=== PATIENT | female | born 1980 | race African-American/Black ===

== ENCOUNTER 2019-11-27 05:48 | Emergency (ER) | payer SELFPAY ==
[~2019-11-27] VITALS: Ht 170.2 cm; Wt 91.0 kg
[2019-11-27] MEDS ORDERED: METF-414 MT (06:04)
[2019-11-27] MEDS ORDERED: METF-414 PO (06:04)
[2019-11-27] MEDS ORDERED: ACETAMINOPHEN 325MG TABLET PO STA (06:44)
[2019-11-27] MEDS ORDERED: SODIUM CHLORIDE 0.9% 1,000 ML IV ONE ×2 (06:45)
[2019-11-27 07:18] LABS: HEMATOCRIT. 43.4 % (36.0-48.0); HEMOGLOBIN. 14.4 g/dL (12.0-16.0); MEAN CORPUSCULAR HEMOGLOBIN 27.2 pg (28.0-32.0); PLATELET 243 x1000/uL (130-400); RED BLOOD CELL COUNT 5.29 mill/uL (4.2-5.4); RED CELL DISTRIBUTION WIDTH 14.1 % (11.6-14.6)
[2019-11-27 07:24] LABS: CHLORIDE 106 mEq/L (98-107)
[2019-11-27 07:54] LABS: CLARITY URINE CLEAR (CLEAR); COLOR URINE YELLOW (YELLOW); KETONES URINE NEGATIVE (NEGATIVE); LEUKOCYTE ESTERASE URINE NEGATIVE (NEGATIVE); NITRITE URINE NEGATIVE (NEGATIVE); OCCULT BLOOD URINE NEGATIVE (NEGATIVE); PROTEIN URINE NEGATIVE (NEGATIVE); SPECIFIC GRAVITY URINE 1.007 (1.005-1.030); UROBILINOGEN URINE 0.2 E.U./dL (0.2-1.0)
[2019-11-27 08:21] LABS: PLATELET ESTIMATE NORMAL
[2019-11-27 09:10] VITALS: BP 141/88
== END 2019-11-27 09:21 | disposition home or self-care (01) ==
LOC: ER 05:48
DX: B34.9 Viral infection, unspecified (principal); E11.9 Type 2 diabetes mellitus without complications; Z79.84 Long term (current) use of oral hypoglycemic drugs; Z90.49 Acquired absence of other specified parts of digestive tract
CPT/HCPCS: 36415; 71045; 80053; 81003; 81025; 85025; 85610; 87040; 87804; 99284; J7030

== ENCOUNTER 2019-11-28 10:03 | Inpatient (IN) | payer SELFPAY ==
[~2019-11-28] VITALS: Ht 170.2 cm; Wt 107.0 kg
[~2019-11-28 10:03] MED LIST: METF-414 MT; METF-414 PO
[2019-11-28] MEDS ORDERED: SODIUM CHLORIDE 0.9% 1,000 ML IV ONE (10:07)
[2019-11-28] MEDS ORDERED: PIPERACILLIN/TAZ 3.375G PREMIX 50 ML IV ONE (10:15)
[2019-11-28] MEDS ORDERED: AZITHROMYCIN 500 MG in DEXT 5% WATER 250 ML IV ONE (10:15)
[2019-11-28 11:54] LABS: BASOPHILS % 1.3 % (0.0-2.0); HEMATOCRIT. 44.2 % (36.0-48.0); HEMOGLOBIN. 14.7 g/dL (12.0-16.0); LYMPHOCYTES % 35.2 % (20.0-50.0); MEAN CORPUSCULAR HEMOGLOBIN 27.6 pg (28.0-32.0); MEAN CORPUSCULAR VOLUME 83.1 fL (81.0-99.0); MEAN PLATELET VOLUME 9.2 fl (7.4-10.4); MONOCYTES % 10.5 % (2.0-8.0); PLATELET 235 x1000/uL (130-400); RED BLOOD CELL COUNT 5.32 mill/uL (4.2-5.4); RED CELL DISTRIBUTION WIDTH 14.1 % (11.6-14.6)
[2019-11-28 12:00] LABS: CHLORIDE 108 mEq/L (98-107)
[2019-11-28] MEDS ORDERED: DOCUSATE SODIUM 100MG CAPSULE PO PRN (13:00)
[2019-11-28] MEDS ORDERED: ONDANSETRON HCL 4MG/2ML INJ IV PRN (13:00)
[2019-11-28] MEDS ORDERED: GUAIFENESIN 200MG/10ML SUGAR FREE UDC PO PRN (13:00)
[2019-11-28] MEDS ORDERED: MAGNESIUM/ALUMINUM HYDROXIDE/SIMETHICONE 30ML UDC PO PRN (13:00)
[2019-11-28] MEDS ORDERED: CLONIDINE 0.1MG TABLET PO PRN (13:00)
[2019-11-28] MEDS: AMLODIPINE 10MG TABLET PO SCH (18:30)
[2019-11-28 20:00] VITALS: BP_SYST 99; BP_DIAS 78; BP_DIAS 86
[2019-11-28] MEDS: PIPERACILLIN/TAZOBACTAM 3.375 G in DEXT 5% WATER 100 ML IV SCH (22:18)
[2019-11-29] VITALS: BP 140/86
[2019-11-29 04:00] VITALS: BP 136/86
[2019-11-29] MEDS: PIPERACILLIN/TAZOBACTAM 3.375 G in DEXT 5% WATER 100 ML IV SCH ×4 (04:53→23:59)
[2019-11-29] MEDS: AZITHROMYCIN 250 MG in DEXT 5% WATER 250 ML IV SCH ×2 (09:00→10:21)
[2019-11-29] MEDS: AMLODIPINE 10MG TABLET PO SCH (10:23)
[2019-11-29 11:48] LABS: BASOPHILS % 0.6 % (0.0-2.0); HEMATOCRIT. 42.5 % (36.0-48.0); HEMOGLOBIN. 14.1 g/dL (12.0-16.0); LYMPHOCYTES % 32.8 % (20.0-50.0); MEAN CORPUSCULAR HEMOGLOBIN 27.3 pg (28.0-32.0); MEAN CORPUSCULAR VOLUME 82.5 fL (81.0-99.0); MEAN PLATELET VOLUME 8.8 fl (7.4-10.4); MONOCYTES % 9.6 % (2.0-8.0); PLATELET 236 x1000/uL (130-400); RED BLOOD CELL COUNT 5.15 mill/uL (4.2-5.4); RED CELL DISTRIBUTION WIDTH 14.2 % (11.6-14.6)
[2019-11-29 12:00] VITALS: BP 150/81
[2019-11-29 12:19] LABS: CHLORIDE 105 mEq/L (98-107)
[2019-11-29] MEDS ORDERED: DEXTROSE 50% WATER 50ML SYRINGE IV PRN (13:45)
[2019-11-29] MEDS: AZITHROMYCIN 500 MG TABLET PO SCH (15:00)
[2019-11-29 16:00] VITALS: BP 129/86
[2019-11-29] MEDS: ACETAMINOPHEN 325MG TABLET PO PRN (16:36)
[2019-11-29] MEDS: INSULIN LISPRO 100 UNITS/ML SUBCUT SCH ×2 (16:46→20:38)
[2019-11-29] MEDS: BLOOD SUGAR DIAGNOSTIC STRIP TEST SCH ×2 (16:46→20:37)
[2019-11-29 21:28] VITALS: BP 129/94
[2019-11-30] VITALS: BP 135/86
[2019-11-30 04:00] VITALS: BP 118/73
[2019-11-30] MEDS: PIPERACILLIN/TAZOBACTAM 3.375 G in DEXT 5% WATER 100 ML IV SCH ×4 (05:28→23:40)
[2019-11-30] MEDS: BLOOD SUGAR DIAGNOSTIC STRIP TEST SCH ×4 (07:42→19:47)
[2019-11-30] MEDS: INSULIN LISPRO 100 UNITS/ML SUBCUT SCH ×4 (07:42→21:00)
[2019-11-30 08:00] VITALS: BP 137/97
[2019-11-30] MEDS: ACETAMINOPHEN 325MG TABLET PO PRN ×3 (08:56→21:03)
[2019-11-30] MEDS: AMLODIPINE 10MG TABLET PO SCH (08:57)
[2019-11-30] MEDS: AZITHROMYCIN 500 MG TABLET PO SCH (08:58)
[2019-11-30 12:00] VITALS: BP 122/84
[2019-11-30 16:00] VITALS: BP 137/97
[2019-11-30 20:00] VITALS: BP 144/90
[2019-12-01] VITALS: BP 115/71
[2019-12-01 04:00] VITALS: BP 133/69
[2019-12-01] MEDS: ACETAMINOPHEN 325MG TABLET PO PRN ×2 (04:19→10:43)
[2019-12-01] MEDS: PIPERACILLIN/TAZOBACTAM 3.375 G in DEXT 5% WATER 100 ML IV SCH ×2 (05:02→12:44)
[2019-12-01] MEDS: BLOOD SUGAR DIAGNOSTIC STRIP TEST SCH ×2 (06:26→12:40)
[2019-12-01] MEDS: INSULIN LISPRO 100 UNITS/ML SUBCUT SCH ×2 (06:26→13:10)
[2019-12-01] MEDS: AMLODIPINE 10MG TABLET PO SCH (09:00)
[2019-12-01] MEDS: AZITHROMYCIN 500 MG TABLET PO SCH (10:11)
[2019-12-01 12:09] LABS: BASOPHILS % 0.6 % (0.0-2.0); EOSINOPHILS % 0.5 % (0.0-5.0); HEMATOCRIT. 44.2 % (36.0-48.0); HEMOGLOBIN. 14.8 g/dL (12.0-16.0); LYMPHOCYTES % 26.3 % (20.0-50.0); MEAN CORPUSCULAR HEMOGLOBIN 27.5 pg (28.0-32.0); MEAN CORPUSCULAR VOLUME 82.2 fL (81.0-99.0); MEAN PLATELET VOLUME 8.8 fl (7.4-10.4); MONOCYTES % 7.2 % (2.0-8.0); NEUTROPHILS % 65.4 % (40.0-76.0); PLATELET 204 x1000/uL (130-400); RED BLOOD CELL COUNT 5.38 mill/uL (4.2-5.4)
[2019-12-01 12:14] LABS: CHLORIDE 104 mEq/L (98-107)
[2019-12-01 15:57] VITALS: BP 110/75
== END 2019-12-01 16:40 | disposition home or self-care (01) | DRG 137 ==
LOC: ER 10:03 → EDBEDREQ 10:16 → 7EST 12:24 → EDBEDREQSVC 12:39 → EDBEDREQ 12:39 → EDBEDREQTM 12:39 → ENRESERV 16:27 → 7WST 11-29 19:00
PROVIDERS: ADMIT Hospitalist; ATTEND Hospitalist
DX: U07.1 COVID-19 (principal); J96.00 Acute respiratory failure, unspecified whether with hypoxia or hypercapnia; B34.9 Viral infection, unspecified; E11.9 Type 2 diabetes mellitus without complications; I10 Essential (primary) hypertension; J98.11 Atelectasis
CPT/HCPCS: 36415; 71045; 80053; 82962; 83036; 83605; 85025; 87635; 93005; 96365; 99285; J0456; J2543; J7030; J7060

== ENCOUNTER 2019-12-14 14:49 | Emergency (ER) | payer SELFPAY ==
[~2019-12-14] VITALS: Ht 170.2 cm; Wt 104.3 kg
[~2019-12-14 14:49] MED LIST changes: -METF-414 PO
[2019-12-14] MEDS ORDERED: ACETAMINOPHEN 325MG TABLET PO ONE (15:15)
[2019-12-14 17:37] VITALS: BP 140/83
== END 2019-12-14 17:41 | disposition home or self-care (01) ==
LOC: ER 14:49
DX: R25.2 Cramp and spasm (principal); E11.9 Type 2 diabetes mellitus without complications; Z86.19 Personal history of other infectious and parasitic diseases; Z79.84 Long term (current) use of oral hypoglycemic drugs
CPT/HCPCS: 93971; 99284

== ENCOUNTER 2019-12-23 09:06 | Emergency (ER) | payer MEDICAID, SELFPAY ==
[~2019-12-23] VITALS: Ht 170.2 cm; Wt 104.0 kg
[2019-12-23] MEDS ORDERED: SODIUM CHLORIDE 0.9% 1,000 ML IV ONE ×2 (09:46→11:00)
[2019-12-23 10:25] LABS: BASOPHILS % 0.6 % (0.0-2.0); EOSINOPHILS % 2.4 % (0.0-5.0); HEMATOCRIT. 46.1 % (36.0-48.0); HEMOGLOBIN. 15.1 g/dL (12.0-16.0); LYMPHOCYTES % 35.9 % (20.0-50.0); MEAN CORPUSCULAR VOLUME 82.5 fL (81.0-99.0); MEAN PLATELET VOLUME 9.2 fl (7.4-10.4); MONOCYTES % 6.8 % (2.0-8.0); NEUTROPHILS % 54.3 % (40.0-76.0); PLATELET 251 x1000/uL (130-400); RED BLOOD CELL COUNT 5.58 mill/uL (4.2-5.4)
[2019-12-23 10:32] LABS: CHLORIDE 102 mEq/L (98-107)
[2019-12-23 10:36] LABS: D-DIMER 0.21 mg/L FEU (<0.50); PROTHROMBIN TIME 10.6 sec (9.6-11.0)
[2019-12-23 11:10] LABS: CLARITY URINE CLOUDY (CLEAR); COLOR URINE YELLOW (YELLOW); KETONES URINE NEGATIVE (NEGATIVE); LEUKOCYTE ESTERASE URINE NEGATIVE (NEGATIVE); NITRITE URINE NEGATIVE (NEGATIVE); OCCULT BLOOD URINE TRACE (NEGATIVE); PH URINE 6.5 (4.5-8.0); PROTEIN URINE NEGATIVE (NEGATIVE); SPECIFIC GRAVITY URINE 1.006 (1.005-1.030); UROBILINOGEN URINE 0.2 E.U./dL (0.2-1.0)
[2019-12-23] MEDS ORDERED: METOPROLOL TARTRATE 25MG TABLET PO ONE (12:15)
[2019-12-23] MEDS ORDERED: AMLODIPINE 5MG TABLET PO ONE (12:15)
[2019-12-23 12:31] VITALS: BP 155/94
== END 2019-12-23 12:54 | disposition home or self-care (01) ==
LOC: ER 09:23
DX: R00.2 Palpitations (principal); R07.9 Chest pain, unspecified; E11.9 Type 2 diabetes mellitus without complications; Z79.84 Long term (current) use of oral hypoglycemic drugs; Z20.828 Contact with and (suspected) exposure to other viral communicable diseases
CPT/HCPCS: 36415; 71045; 80053; 81003; 81025; 84443; 85025; 85379; 85610; 87804; 93005; 99285; C9803; J7030; U0003; 87635

== ENCOUNTER 2020-01-02 11:59 | Emergency (ER) | payer MEDICAID, SELFPAY ==
[~2020-01-02] VITALS: Ht 172.7 cm; Wt 65.0 kg
[2020-01-02 13:22] LABS: CLARITY URINE CLEAR (CLEAR); COLOR URINE YELLOW (YELLOW); KETONES URINE NEGATIVE (NEGATIVE); LEUKOCYTE ESTERASE URINE NEGATIVE (NEGATIVE); NITRITE URINE NEGATIVE (NEGATIVE); OCCULT BLOOD URINE NEGATIVE (NEGATIVE); PROTEIN URINE NEGATIVE (NEGATIVE); SPECIFIC GRAVITY URINE 1.015 (1.005-1.030); UROBILINOGEN URINE 0.2 E.U./dL (0.2-1.0)
[2020-01-02 14:17] VITALS: BP 133/99
== END 2020-01-02 14:18 | disposition home or self-care (01) ==
LOC: ER 12:25
DX: R30.0 Dysuria (principal); E11.9 Type 2 diabetes mellitus without complications; I10 Essential (primary) hypertension
CPT/HCPCS: 81003; 81025; 82962; 99283